=== PATIENT | male | born 1965 | race Caucasian/White ===

== ENCOUNTER → 2021-02-26 14:13 | Outpatient (CLI) | payer OTHER, SELFPAY ==
--- NOTE | ~2021-02-26 | XR_ITS ---
XR foot LT min 3V DATE: 02/26/2021 15:01 INDICATION: First metatarsophalangeal pain TECHNIQUE: 4 views COMPARISON: None FINDINGS: There is prominent osteoarthritic change at the first metatarsophalangeal joint. Plantar calcaneal enthesopathy. No fracture, dislocation, periosteal reaction or bone destruction. IMPRESSION: Osteoarthritis at first metatarsophalangeal joint Plantar calcaneal enthesopathy Reviewed, dictated and finalized at location A.
== END ==
PROVIDERS: PCP Family Medicine Adolescent Medicine; Visit Provider Family Medicine Adolescent Medicine
DX: M79.672 Pain in left foot (principal); M19.072 Primary osteoarthritis, left ankle and foot; M77.32 Calcaneal spur, left foot
CPT/HCPCS: 73630

== ENCOUNTER → 2021-03-04 11:55 | Outpatient (CLI) | payer OTHER, SELFPAY ==
--- NOTE | ~2021-03-04 | XR_ITS ---
EXAMINATION: XR chest 2V DATE: 03/04/2021 12:36 INDICATION: Cough. TECHNIQUE: Frontal and lateral views of the chest were obtained. COMPARISON: None. FINDINGS: The chest demonstrates clear lungs without pneumonia, pleural effusion, or pneumothorax. Th e heart size is normal. IMPRESSION: 1. No acute cardiopulmonary disease. Reviewed, dictated and finalized at location B.
== END ==
PROVIDERS: PCP Family Medicine Adolescent Medicine; Visit Provider Physician Assistant
DX: R05 Cough (principal)
CPT/HCPCS: 71046

== ENCOUNTER → 2022-10-10 10:01 | Outpatient (CLI) | payer OTHER, SELFPAY ==
--- NOTE | ~2022-10-10 | XR_ITS ---
EXAM: XR lumbar spine 2-3V DATE: 10/10/2022 10:12 HISTORY: no injury low back pain for 40 plus years . COMPARISON: None available. FINDINGS: 5 nonrib-bearing lumbar-type vertebral bodies. Pedicles intact. Normal vertebral body alig nment. Vertebral body heights preserved. Mild disc space narrowing at L2-3 through L4-5 and multileve l marginal osteophytosis. Limbus vertebrae at L4. Mild multilevel facet hypertrophy and sclerosis in the lower lumbar spine. No fracture or dislocation. IMPRESSION: Multilevel mild degenerative disc disease and facet arthropathy. Reviewed, dictated and finalized at location K. MENT PHOTOGRAPHER
== END ==
PROVIDERS: PCP Family Medicine Adolescent Medicine; Visit Provider Physician Assistant
DX: M51.36 Other intervertebral disc degeneration, lumbar region (principal)
CPT/HCPCS: 72100

== ENCOUNTER 2024-08-16 09:55 | Outpatient (CLI) | payer OTHER, SELFPAY ==
--- NOTE | ~2024-08-16 | XR_ITS ---
Left Knee Technique: AP, lateral, and sunrise views were obtained. Clinical History: Pain Findings: No fracture or dislocation is seen. There is medial compartment narrowing with mild medial joint line osteophyte formation. There is minimal patellar and intercondylar notch spurring. Suggesti on of deep sulcus sign on the lateral view. Soft tissues are unremarkable. No joint effusion is seen. Impression: Possible deep sulcus sign on lateral view. This could indicate underlying prior ACL tear. Correlate f or ACL laxity. Mild degenerative changes, as above. Reviewed, dictated and finalized at location M. Impression: Possible deep sulcus sign on lateral view. This could indicate underlying prior ACL tear. Correlate for ACL laxity. Mild degenerative changes, as above.
== END 2024-08-16 09:56 | disposition home or self-care (01) ==
LOC: GOSHIMG 09:58
PROVIDERS: PCP Orthopaedic Surgery; Visit Provider Family Medicine Adolescent Medicine
DX: M17.12 Unilateral primary osteoarthritis, left knee (principal)
CPT/HCPCS: 73562

== ENCOUNTER 2025-01-13 17:05 | Emergency (ER) | payer OTHER, SELFPAY ==
[2025-01-13 17:11] VITALS: BP 123/88; PULSE 98; RESP 18; TEMP 37.2; O2SAT 97
--- NOTE | 2025-01-13 17:24 | ED.URI ---
HPI - URI/Sore Throat General Chief Complaint: Upper Respiratory Infection Stated Complaint: Cough Time Seen by Provider: 01/13/25 17:15 Source: patient Mode of arrival: ambulatory Limitations: no limitations History of Present Illness HPI Narrative: Ketan is a 5-year-old male patient presenting to the clinic today with complaints of cough, nasal congestion, headache, feeling feverish, with some mild body aches. He reports symptoms been going on for approximately 3 days. Denies any chest pain or shortness of breath. Cough is nonproductive. MD elicited complaint: cough, rhinorrhea and nasal congestion Related Data Allergies Allergy/AdvReac Type Severity Reaction Status Date / Time No Known Allergies Allergy Verified 01/13/25 17:18 Review of Systems Review of Systems: Pertinent positives per HPI. Patient denies any rash, headache, visual changes, dizziness, shortness of breath, chest pain, palpitations, nausea, vomiting, diarrhea, constipation, abdominal pain, or any urinary issues. PMF Past Medical History Medical History Left knee DJD Normal colonoscopy 2013 Benign prostatic hyperplasia with lower urinary tract symptoms Hypothyroidism, unspecified Pure hypercholesterolemia, unspecified Chronic viral hepatitis C Surgical History Surgical History History of shoulder surgery RTC, Carole 2014 Family History Family History Unknown Heart disease High cholesterol Social History Social History Smoking status: Never smoker Alcohol intake: never Substance use type: does not use Lack of Transportation: No Lack of Food: Never True Current Housing: I Have Housing Concerned About Future Housing: No Difficulty Paying Gas/Electric Bills: No Difficulty Paying for Meds: No Currently Unemployed: YES Education: High School Diploma/GED Difficulty w/ Childcare or Family Care: No Living arrangements: alone Occupation/Education: occupation 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 There is no relevant family history pertinent to the patient complaint. Exam Narrative: General: Well-developed, well nourished, in no apparent distress Head: Normocephalic, atraumatic Eyes: Pupils equally round and reactive to light bilaterally, EOM intact, sclera and conjunctive clear, no discharge, lids normal Ears: TMs intact and clear, ear canals clear, no drainage, grossly hearing normal. Nose: Nares patent, clear nasal discharge, no inflammation, no sinus tenderness. Mouth: Oral pharynx without lesions or masses, good dentition, MMM. Neck: Supple, trachea midline, no enlargement of anterior or posterior cervical nodes, no thyroid masses or goiter palpable. Cardio: Regular rate and rhythm, s1 and s2 normal, no murmur appreciated. Resp: Clear to auscultation bilaterally, no rhonchi, rales, wheezing or rubs Course Course Emergency Course: Portions of this record may have been created with voice recognition software. Level of Care: Express Care Visit Vital Signs Vital signs: Vital Signs Temperature 37.2 C 01/13/25 17:11 Pulse Rate 98 01/13/25 17:11 Respiratory Rate 18 01/13/25 17:11 Blood Pressure 123/88 01/13/25 17:11 Pulse Oximetry 97 01/13/25 17:11 Oxygen Delivery Room Air 01/13/25 17:11 Temperature 37.2 C 01/13/25 17:11 Pulse Rate 98 01/13/25 17:11 Respiratory Rate 18 01/13/25 17:11 Blood Pressure 123/88 01/13/25 17:11 Pulse Oximetry 97 01/13/25 17:11 Oxygen Delivery Room Air 01/13/25 17:11 Vital signs reviewed MDM - URI/Sore Throat MDM Narrative Medical decision making narrative: At the time of visit patient is resting comfortably on the exam table. Patient appears to be nontoxic. Labs: COVID and influenza testing was performed and was negative in the clinic today. Plan: I suspect patient has COVID. Supportive measures were discussed with the patient and they voiced understanding discharge instructions and agrees to treatment plan. Return precautions reviewed Differential Diagnosis Differential diagnosis: Likely upper respiratory infection, otitis media, sinusitis, viral infection, bronchitis, influenza, pharyngitis and other (COVID) Lab Data Labs: Lab Results 01/13/25 Range/Units 17:29 POC Influenza A Ag Negative (Negative) POC Influenza B Ag Negative (Negative) POC SARS CoV-2 Ag Positive (Negative) Discharge Plan Discharge Clinical Impression: COVID-19 Patient Disposition: Home, Self-Care Condition: Stable Instructions: Antibiotic Form, How to Recover from COVID-19 at Home (ED) Additional Instructions: COVID testing is positive in the clinic today. Influenza testing was negative May take Coricidin HBP for cold/flu symptoms Increase fluids and stay well hydrated Tylenol/motrin for pain/fever Flonase and OTC antihistamines as directed Vicks vapor rub to open sinuses Sinus rinses for congestion Cepacol spray, cough drops, throat lozenges, warm tea with honey/lemon, gargle salt water to soothe throat BRAT diet for diarrhea Clear liquids x 24 hours then advance as tolerated for nausea/vomiting Go to the ED if you develop a worsening in your condition- high fever not controlled by Tylenol or Motrin, dehydration, weakness, lethargy, shortness of breath, or chest pain. Follow up with your PCP in 3-5 days if symptoms persist. Patient Language: Belgian Prescriptions: No Action bupropion HCl 150 mg tablet extended release 24 hr See Rx Instructions .ROUTE .COMPLEX Qty: 90 3RF Dose Instruction: TAKE 1 TABLET EVERY MORNING Rx Instructions: TAKE 1 TABLET EVERY MORNING atorvastatin 40 mg tablet 40 mg PO DAILY Qty: 90 3RF levothyroxine 137 mcg tablet See Rx Instructions .ROUTE .COMPLEX Qty: 90 3RF Dose Instruction: TAKE 1 TABLET DAILY Rx Instructions: TAKE 1 TABLET DAILY baclofen 20 mg tablet 20 mg PO QHS Qty: 90 1RF tadalafil 20 mg tablet See Rx Instructions .ROUTE .COMPLEX Qty: 18 7RF Dose Instruction: TAKE 1 TABLET DAILY NEEDED, TAKE APPROXIMATELY 30 MINUTES BEFORE SEXUAL ACTIVITY. DO NOT USE MORE THAN 1 DOSE PER 24 HOURS Rx Instructions: TAKE 1 TABLET DAILY NEEDED, TAKE APPROXIMATELY 30 MINUTES BEFORE SEXUAL ACTIVITY. DO NOT USE MORE THAN 1 DOSE PER 24 HOURS tamsulosin 0.4 mg capsule See Rx Instructions .ROUTE .COMPLEX Qty: 90 2RF Dose Instruction: TAKE 1 CAPSULE DAILY Rx Instructions: TAKE 1 CAPSULE DAILY pantoprazole 40 mg tablet,delayed release (DR/EC) 40 mg PO QAM Qty: 90 2RF duloxetine 60 mg capsule,delayed release(DR/EC) 60 mg PO DAILY Qty: 90 2RF Rx Instructions: 14 days of 30mg at local pharmacy then 60mg daily gabapentin 300 mg capsule 600 mg PO TID Qty: 180 2RF finasteride 5 mg tablet See Rx Instructions .ROUTE .COMPLEX Qty: 90 3RF Dose Instruction: TAKE 1 TABLET DAILY Rx Instructions: TAKE 1 TABLET DAILY alprazolam 1 mg tablet 1 mg PO BID PRN (Reason: anxiety) Qty: 2 0RF Rx Instructions: Prior to MRI Follow-up/Referrals: PHYSICIAN,MANAGER HOUSE [Primary Care Provider] - Stand Alone Forms: Work/School Release IP Time of Disposition: 17:32 Quality NIHSS Nursing Documentation ED NIHSS nursing documentation: reviewed/agree
[2025-01-13 17:31] LABS: EDCOVIDSCREEN Positive (Negative); EDINFLUASCREEN Negative (Negative); EDINFLUBSCREEN Negative (Negative)
== END 2025-01-13 17:38 | disposition home or self-care (01) ==
PROVIDERS: Emergency Provider Nurse Practitioner Family
DX: U07.1 COVID-19 (principal); N40.1 Benign prostatic hyperplasia with lower urinary tract symptoms; E03.9 Hypothyroidism, unspecified; E78.00 Pure hypercholesterolemia, unspecified; M17.12 Unilateral primary osteoarthritis, left knee
CPT/HCPCS: 87426; 87804; 99212; G0463

== ENCOUNTER 2025-02-07 12:25 | Emergency (ER) | payer OTHER, SELFPAY ==
--- NOTE | ~2025-02-07 | XR_ITS ---
EXAMINATION: XR chest 2V DATE: 02/07/2025 12:50 INDICATION: Shortness of breath. TECHNIQUE: Frontal and lateral views of the chest were obtained. COMPARISON: Chest 2 views 03/04/2021 FINDINGS: There is no pneumonia, pleural effusion, or pneumothorax. The heart size is normal. IMPRESSION: 1. No acute cardiopulmonary disease. Reviewed, dictated and finalized at location A.
[2025-02-07 12:33] VITALS: BP 106/61; PULSE 87; RESP 16; TEMP 36.1; O2SAT 96
--- NOTE | 2025-02-07 12:35 | ED.URI ---
HPI - URI/Sore Throat General Chief Complaint: Upper Respiratory Infection Stated Complaint: COUGH/CONGESTION/WHEEZING/SOB Time Seen by Provider: 02/07/25 12:35 Source: patient Mode of arrival: ambulatory Limitations: no limitations History of Present Illness HPI Narrative: 59 yo M presents with c/o dry cough, SOB for past 2 to 3 days. hx of exercise induced asthma. Has been using inhaler more than usual. Afebrile. Had covid 1 month ago and symptoms had resolved. All systems reviewed and negative except as noted above. Related Data Allergies Allergy/AdvReac Type Severity Reaction Status Date / Time No Known Allergies Allergy Verified 02/07/25 12:40 Review of Systems Review of Systems: CONSTITUTIONAL: Denies fever, chills, or sweats. EYES: Denies visual changes, redness, or discharge. ENT: Denies rhinorrhea, congestion, sore throat, or otalgia. CARDIOVASCULAR: Denies chest pain, palpitations, or edema. RESPIRATORY: Reports cough and dyspnea with exertion. GASTROINTESTINAL: Denies abdominal pain, nausea, vomiting, or diarrhea. GENITOURINARY: Denies dysuria or hematuria. SKIN: Denies rash or itching. MUSCULOSKELETAL: Denies back pain, joint pain, or myalgia. NEUROLOGIC: Denies headache, numbness, or weakness. PSYCHIATRIC: Denies anxiety or depression. All other systems reviewed are negative, except as documented in HPI. [facility] Past Medical History Medical History Left knee DJD Normal colonoscopy 2013 Benign prostatic hyperplasia with lower urinary tract symptoms Hypothyroidism, unspecified Pure hypercholesterolemia, unspecified Chronic viral hepatitis C Surgical History Surgical History History of shoulder surgery RTC, Carole 2014 Family History Family History Unknown Heart disease High cholesterol Social History Social History Smoking status: Never smoker Alcohol intake: never Substance use type: does not use Lack of Transportation: No Lack of Food: Never True Current Housing: I Have Housing Concerned About Future Housing: No Difficulty Paying Gas/Electric Bills: No Difficulty Paying for Meds: No Currently Unemployed: YES Education: High School Diploma/GED Difficulty w/ Childcare or Family Care: No Living arrangements: alone Occupation/Education: occupation 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 There is no relevant family history pertinent to the presenting complaint. Exam Narrative: GENERAL: This is a well-nourished, well-developed patient, in no apparent distress. HEAD: normocephalic, atraumatic. EYES: PERRL. Sclera clear/white. Vision is grossly intact. EARS: External ears normal NOSE: External nose normal NECK: Neck supple, non-tender without lymphadenopathy, masses or thyromegaly. CARDIOVASCULAR: Regular rate and rhythm without murmurs, gallops, or rubs. RESPIRATORY: Mildly decreased to bilateral lower lung collins otherwise clear. Breath sounds equal bilaterally. No wheezes, rales, or rhonchi. SKIN: warm, Dry, intact with no suspicious lesions or rash, good texture and turgor. NEURO: awake, alert, and oriented to person, place and time. There were no obvious focal neurologic abnormalities. EXTREMITIES: No joint tenderness, effusion, or edema noted. Course Course Level of Care: Express Care Visit Vital Signs Vital signs: Vital Signs Temperature 36.1 C L 02/07/25 12:33 Pulse Rate 87 02/07/25 12:33 Respiratory Rate 16 02/07/25 12:33 Blood Pressure 106/61 02/07/25 12:33 Pulse Oximetry 96 02/07/25 12:33 Temperature 36.1 C L 02/07/25 12:33 Pulse Rate 87 02/07/25 12:33 Respiratory Rate 16 02/07/25 12:33 Blood Pressure 106/61 02/07/25 12:33 Pulse Oximetry 96 02/07/25 12:33 Reviewed MDM - URI/Sore Throat MDM Narrative Medical decision making narrative: x-ray negative for fracture. Will DC with prednisone. has organ assembler to follow up with. Please be advised this is a medical document. It is intended for [id number] communication. It is written in medical language and may contain unfamiliar abbreviations or verbiage. Medical documents are intended to carry relevant information, facts as evident, and the clinical opinion of the practitioner at the time of the encounter. This report may have been done utilizing a voice recognition system. Attempts have been made to correct errors. However, there may be uncorrected grammatical, spelling, and recognition errors present. The file time of this note does not necessarily represent the time of service. Imaging Data My impression: Agree with radiologist Radiologist's impression: EXAMINATION: XR chest 2V DATE: 02/07/2025 12:50 INDICATION: Shortness of breath. TECHNIQUE: Frontal and lateral views of the chest were obtained. COMPARISON: Chest 2 views 03/04/2021 FINDINGS: There is no pneumonia, pleural effusion, or pneumothorax. The heart size is normal. IMPRESSION: 1. No acute cardiopulmonary disease. Discharge Plan Discharge Clinical Impression: Asthma exacerbation, Acute seasonal allergic rhinitis Patient Disposition: Home, Self-Care Condition: Stable Instructions: Asthma (ED) Additional Instructions: Your chest x-ray was normal today. Take medications as prescribed. Continue taking Claritin daily. See your doctor if symptoms are not improving. Patient Language: Israeli Prescriptions: New benzonatate 200 mg capsule 200 mg PO TID PRN (Reason: cough) Qty: 20 0RF prednisone 20 mg tablet 40 mg PO DAILY 5 Days Qty: 10 0RF fluticasone propionate [Flonase Allergy Relief] 50 mcg/actuation spray,suspension 1 spray intranasal BID Qty: 16 0RF Rx Instructions: administer into each nostril No Action bupropion HCl 150 mg tablet extended release 24 hr See Rx Instructions .ROUTE .COMPLEX Qty: 90 3RF Dose Instruction: TAKE 1 TABLET EVERY MORNING Rx Instructions: TAKE 1 TABLET EVERY MORNING atorvastatin 40 mg tablet 40 mg PO DAILY Qty: 90 3RF levothyroxine 137 mcg tablet See Rx Instructions .ROUTE .COMPLEX Qty: 90 3RF Dose Instruction: TAKE 1 TABLET DAILY Rx Instructions: TAKE 1 TABLET DAILY baclofen 20 mg tablet 20 mg PO QHS Qty: 90 1RF tadalafil 20 mg tablet See Rx Instructions .ROUTE .COMPLEX Qty: 18 7RF Dose Instruction: TAKE 1 TABLET DAILY NEEDED, TAKE APPROXIMATELY 30 MINUTES BEFORE SEXUAL ACTIVITY. DO NOT USE MORE THAN 1 DOSE PER 24 HOURS Rx Instructions: TAKE 1 TABLET DAILY NEEDED, TAKE APPROXIMATELY 30 MINUTES BEFORE SEXUAL ACTIVITY. DO NOT USE MORE THAN 1 DOSE PER 24 HOURS tamsulosin 0.4 mg capsule See Rx Instructions .ROUTE .COMPLEX Qty: 90 2RF Dose Instruction: TAKE 1 CAPSULE DAILY Rx Instructions: TAKE 1 CAPSULE DAILY pantoprazole 40 mg tablet,delayed release (DR/EC) 40 mg PO QAM Qty: 90 2RF duloxetine 60 mg capsule,delayed release(DR/EC) 60 mg PO DAILY Qty: 90 2RF Rx Instructions: 14 days of 30mg at local pharmacy then 60mg daily gabapentin 300 mg capsule 600 mg PO TID Qty: 180 2RF finasteride 5 mg tablet See Rx Instructions .ROUTE .COMPLEX Qty: 90 3RF Dose Instruction: TAKE 1 TABLET DAILY Rx Instructions: TAKE 1 TABLET DAILY alprazolam 1 mg tablet 1 mg PO BID PRN (Reason: anxiety) Qty: 2 0RF Rx Instructions: Prior to MRI Follow-up/Referrals: Matias Franklin MD [Primary Care Provider] - Time of Disposition: 13:30
== END 2025-02-07 13:43 | disposition home or self-care (01) ==
PROVIDERS: Emergency Provider Nurse Practitioner Family; PCP Family Medicine Adolescent Medicine
DX: J45.901 Unspecified asthma with (acute) exacerbation (principal); J30.2 Other seasonal allergic rhinitis; E03.9 Hypothyroidism, unspecified
CPT/HCPCS: 71046; 99213; G0463